=== PATIENT | female | born 1970 | race Asian ===

== ENCOUNTER 2017-03-04 09:12 | Emergency (ER) | payer OTHER ==
[~2017-03-04] VITALS: Ht 154.9 cm; Wt 61.4 kg
[~2017-03-04 09:12] MED LIST: METR500 PO
[2017-03-04 09:18] VITALS: BP 149/97
== END 2017-03-04 09:25 | disposition left against medical advice (07) ==
LOC: EMS 09:13
DX: M79.646 Pain in unspecified finger(s) (principal); Z53.21 Procedure and treatment not carried out due to patient leaving prior to being seen by health care provider